=== PATIENT | male | born 2000 | race Asian ===

== ENCOUNTER 2023-05-12 | Emergency (ER) | payer OTHER ==
[~2023-05-12] VITALS: Ht 167.6 cm; Wt 52.2 kg
[2023-05-12 00:20] VITALS: BP 126/81; TEMP 98.9
[2023-05-12 01:19] LABS: PLATELET COUNT 223 K/uL (142-355)
[2023-05-12 01:34] LABS: POTASSIUM 4.2 mmol/L (3.6-5.2)
== END 2023-05-12 01:33 | disposition home or self-care (01) ==
LOC: ED
PROVIDERS: Family Medicine
DX: T59.91XA Toxic effect of unspecified gases, fumes and vapors, accidental (unintentional), initial encounter (principal); R07.9 Chest pain, unspecified; Y92.59 Other trade areas as the place of occurrence of the external cause; R06.02 Shortness of breath; F41.9 Anxiety disorder, unspecified
CPT/HCPCS: 80053; 80307; 81002; 85027; 94664; 99283